=== PATIENT | female | born 1975 | race African-American/Black ===

== ENCOUNTER 2016-08-25 08:36 | Emergency (ER) | payer OTHER ==
[2016-08-25 08:43] VITALS: BMI 22.6
--- NOTE | 2016-08-25 09:14 | PDOC ---
History of Present Illness - General History Source: Patient Exam Limitations: No Limitations - History of Present Illness Initial Comments: 08/25/16 09:23 The patient is a 40 year old female, with a significant past medical history of anemia and HTN, who presents to the emergency department with chest pain/ tightness and SOB this morning. She describes her chest pain as a pressure that has been constant since this morning. She ranks her chest pain a 8/10 in pain intensity. She reports her chest pain and SOB is often made worse when lying down. The patient reports her chest pain often radiates up to her left upper arm. She denies recent fevers, chills, headache or dizziness. She denies recent nausea, vomit, diarrhea or constipation. She denies recent dysuria, frequency, urgency or hematuria. She denies recent cough. She denies any recent travel. She denies previous stress test. Allergies: NKA Past surgical history: . Social history: Current smoker (less than a pack a day). Social EtOH use and marijuana use use. Family History: HTN <Saeid Pratt - Last Filed: 08/25/16 13:49> <Nick Mcfadden - Last Filed: 08/25/16 16:25> - General Chief Complaint: Chest Pain Stated Complaint: CONGESTION, CHEST TIGHTNESS Time Seen by Provider: 08/25/16 08:52 Past History <Saeid Pratt - Last Filed: 08/25/16 13:49> - Past Medical History Anemia: Yes HTN: Yes - Psycho/Social/Smoking Cessation Hx Anxiety: No Suicidal Ideation: No Smoking History: Never smoked Number of Cigarettes Smoked Daily: 2 'Breaking Loose' booklet given: 04/05/16 Hx Alcohol Use: Yes (SOCIAL) Drug/Substance Use Hx: No Substance Use Type: None <Nick Mcfadden - Last Filed: 08/25/16 16:25> - Past Medical History Allergies/Adverse Reactions: Allergies Allergy/AdvReac Type Severity Reaction Status Date / Time No Known Allergies Allergy Verified 08/25/16 08:43 Home Medications: Ambulatory Orders Amlodipine Besylate [Norvasc -] 10 mg PO DAILY #30 tablet 04/07/16 Naproxen [Naprosyn -] 500 mg PO BID PRN #20 tablet 08/25/16 Review of Systems - Review of Systems Constitutional: No: Chills, Fever HEENTM: No: Throat Pain, Throat Swelling Respiratory: Yes: Shortness of Breath. No: Cough Cardiac (ROS): Yes: Chest Pain. No: Edema, Lightheadedness, Palpitations ABD/GI: No: Diarrhea, Vomiting Musculoskeletal: No: Muscle Pain All Other Systems: Reviewed and Negative <Nick Mcfadden - Last Filed: 08/25/16 16:25> *Physical Exam - Vital Signs Last Vital Signs Temp Pulse Resp BP Pulse Ox 99.2 F 116 H 20 120/80 97 08/25/16 08:40 08/25/16 08:40 08/25/16 08:40 08/25/16 08:40 08/25/16 08:40 - Physical Exam Comments: 08/25/16 09:23 GENERAL: The patient is awake, alert, and fully oriented, in no acute distress. HEAD: Normal with no signs of trauma. EYES: Pupils equal, round and reactive to light, extraocular movements intact, sclera anicteric, conjunctiva clear with no pallor. ENT: Ears normal, nares patent, oropharynx clear without exudates. Moist mucous membranes. NECK: Normal range of motion, supple without lymphadenopathy, JVD, or masses. LUNGS: Breath sounds equal, clear to auscultation bilaterally. No wheeze/ crackles. HEART: Regular rate and rhythm, normal S1 and S2 without murmur or rub. ABDOMEN: Soft/nontender/nondistended. BS wnl. No guarding or rebound. No palpable masses. No hepatosplenomegaly. EXTREMITIES: Normal range of motion, no edema. No clubbing or cyanosis. No cords , erythema, or tenderness. NEUROLOGICAL: Cranial nerves II through XII grossly intact. Normal speech, normal gait. PSYCH: Normal mood, normal affect. SKIN: Warm, Dry, normal turgor, no rashes or lesions noted. <Saeid Pratt - Last Filed: 08/25/16 13:49> - Vital Signs Last Vital Signs Temp Pulse Resp BP Pulse Ox 99.2 F 116 H 20 120/80 97 08/25/16 08:40 08/25/16 08:40 08/25/16 08:40 08/25/16 08:40 08/25/16 08:40 <Nick Mcfadden - Last Filed: 08/25/16 16:25> Heart Score/ECG Review - History History: Slightly suspicious - Electrocardiogram EKG: Non specific repolarization disturbance - Age Age: </= 46 - Risk Factors Risk Factors Heart Score: Yes Hx Hypertension, Yes Smoking History Based on the list above the patient has:: 1-2 risk factors - Troponin Troponin: </= normal limit - Score Heart Score - Total: 2 #1 ECG reviewed & interpreted by me at: 08:48 General ECG Interpretation: Sinus Rhythm, Normal Rate (102), Normal Intervals ( qtc 458), No acute ischemic changes (T wave flattening lateral leads, sub-mm DAGO isolated V3 without reciprocal changes) <Nick Mcfadden - Last Filed: 08/25/16 16:25> ED Treatment Course - LABORATORY CBC & Chemistry Diagram: 08/25/16 10:25 08/25/16 10:25 - RADIOLOGY Radiograph Interpretation: 08/25/16 13:47 CHEST XRAY impressions reported by : No evidence of active pulmonary disease. <Saeid Pratt - Last Filed: 08/25/16 13:49> - LABORATORY CBC & Chemistry Diagram: 08/25/16 10:25 08/25/16 10:25 <Nick Mcfadden - Last Filed: 08/25/16 16:25> Medical Decision Making - Medical Decision Making 08/25/16 09:18 A portion of this note was documented by scribe services under my direction. I have reviewed the details of the note, within reason, and agree with the documentation with the following case summary and management plan written by me. 40-year-old female with history of hypertension, iron deficiency anemia, smoking history presents with constant substernal and left-sided chest discomfort since last night. Persistent at rest, worse with lying down or bending over, associated with some shortness of breath. Not associated with any cough or fevers or chills, no history of exertional limitations, no PE risk factors. Never had chest pain or stress test. Vital signs within normal limits, heart rate 100 alert, seated in stretcher Heart regular slight tachycardia, lungs are clear, no edema 40-year-old female with some risk factors for ACS presents with overall atypical chest pain that has been constant since last night. Positional nature implies possible GI/GERD versus pericarditis etiology, clinically less consistent with ACS or PE. Labs, EKG Chest x-ray Trial of Zantac and Tylenol Will reassess 08/25/16 14:19 Labs are within normal limits, including troponin. Chest x-ray normal. Patient remains with some positional discomfort, question pericarditis versus musculoskeletal. Trial of Toradol, reassess. Of note, remains with resting HR 100. No risk factors for PE, but will check d- dimer, repeat troponin, and give IV Fluids. 08/25/16 16:22 Toradol improved symptoms, d-dimer and troponin negative. Agrees with discharge plan, trial of NSAIDs, understands return criteria. <Nick Mcfadden - Last Filed: 08/25/16 16:25> *DC/Admit/Observation/Transfer - Attestations Scribe Attestion: 08/25/16 09:23 Documentation prepared by Saeid Pratt, acting as medical device sales consultant for Nick Mcfadden MD. <Saeid Pratt - Last Filed: 08/25/16 13:49> <Nick Mcfadden - Last Filed: 08/25/16 16:25> Diagnosis at time of Disposition: Atypical chest pain - Discharge Dispostion Disposition: HOME Condition at time of disposition: Improved - Prescriptions Prescriptions: Naproxen [Naprosyn -] 500 mg PO BID PRN #20 tablet PRN Reason: Pain - Referrals Referrals: Clark Kurtz MD [Primary Care Provider] - - Patient Instructions Printed Discharge Instructions: DI for Atypical Chest Pain Additional Instructions: Activity as tolerated. Stay hydrated. Blood tests, an EKG, and a chest x-ray performed today showed no acute abnormalities. Your symptoms could be due to some inflammation in the chest, which may be in the lining of the heart or in the muscles or cartilage of the ribs. Take naproxen 500 mg twice daily for 5 days, then as needed for pain. Preferably take with food. Continue your medications as previously prescribed by your physician. You should follow up with Dr. Kurtz as soon as possible regarding today's emergency department visit. If symptoms persist, you should see a reference assistant and/or GI specialist. Return to the emergency department for any new or concerning symptoms, particularly worsening pain, difficulty breathing, palpitations, passing out, vomiting.
[2016-08-25] MEDS ORDERED: ACETAMINOPHEN 500 MG TABLET (FP) PO ONE (09:15)
[2016-08-25] MEDS ORDERED: RANITIDINE HCL 150 MG TABLET (FP) PO ONE (09:15)
[2016-08-25] MEDS ORDERED: RANITIDINE HCL 150 MG TABLET (FP) ONE (09:26)
[2016-08-25] MEDS ORDERED: ACETAMINOPHEN 325 MG TABLET (FP) ONE (09:26)
[2016-08-25 10:53] LABS: BASOPHIL 0.2 % (0-2.0); EOSINOPHIL 0.9 % (0-4.5); MCHC 32.7 g/dl (32.0-36.0); MEAN CELL VOLUME 91.5 fl (80-96); MEAN PLT VOLUME 8.2 fl (7.5-11.1); NEUTROPHILS 87.4 % (42.8-82.8); PLATELET COUNT 272 K/MM3 (134-434); WHITE BLOOD COUNT 12.3 K/mm3 (4.0-10.0)
[2016-08-25 11:17] LABS: INR 1.03 (0.82-1.09); PROTHROMBIN TIME (PATIENT) 11.3 SEC (9.98-11.88)
--- NOTE | 2016-08-25 11:33 | EKG ---
Test Reason : Blood Pressure : / mmHG Vent. Rate : 102 BPM Atrial Rate : 102 BPM P-R Int : 192 ms QRS Dur : 082 ms QT Int : 352 ms P-R-T Axes : 055 -19 015 degrees QTc Int : 458 ms SINUS TACHYCARDIA NONSPECIFIC T WAVE ABNORMALITY ABNORMAL ECG WHEN COMPARED WITH ECG OF 20-JUN-1997 08:33, T WAVE INVERSION NO LONGER EVIDENT IN ANTERIOR LEADS Confirmed by ANISA WILD, ROBERT ([id number]) on 08/25/2016 11:32:58 AM Referred By: Confirmed By:ROBERT LANGE MD
[2016-08-25 11:38] LABS: ANION GAP 14 (8-16); BILIRUBIN,TOTAL 0.3 mg/dL (0.2-1.0); CALCIUM 8.7 mg/dL (8.5-10.1); CO2 24 mmol/L (21-32); CREATININE 0.5 mg/dL (0.55-1.02); GLUCOSE,RANDOM 96 mg/dL (74-106); MAGNESIUM 1.8 mg/dL (1.8-2.4); SGOT/AST 33 U/L (15-37); SGPT/ALT 33 U/L (12-78)
[2016-08-25 11:40] LABS: ALK PHOS 56 U/L (45-117); TROPONIN I < 0.02 ng/ml (0.00-0.05)
[2016-08-25 13:31] VITALS: TEMP 98
[2016-08-25] MEDS ORDERED: KETOROLAC TROMETHAMINE 30 MG/1 ML VIAL IVPUSH ONE (14:10)
[2016-08-25] MEDS ORDERED: KETOROLAC TROMETHAMINE 30 MG/1 ML VIAL ONE (14:21)
[2016-08-25] MEDS ORDERED: SODIUM CHLORIDE 1,000 ML IV ONE (14:22)
[2016-08-25 16:01] LABS: TROPONIN I < 0.02 ng/ml (0.00-0.05)
[2016-08-25 16:50] VITALS: BP 115/80; PULSE 118
== END 2016-08-25 16:50 | disposition home or self-care (01) ==
LOC: JER 08:36
DX: R07.89 Other chest pain (principal); I10 Essential (primary) hypertension; D64.9 Anemia, unspecified
CPT/HCPCS: 36415; 71020-TC; 80053; 82550; 83735; 84484; 84703; 85025; 85379; 85610; 85651; 93005; 93010; 99284-25

== ENCOUNTER → 2016-08-28 | Emergency (ER) | payer OTHER ==
[~2016-08-28] MED LIST: COLCHICINE 0.6 MG TABLET (FP) ONE; INDOMETHACIN 50 MG CAPSULE PO ONE; KETOROLAC TROMETHAMINE 30 MG/1 ML VIAL ONE; SODIUM CHLORIDE 1,000 ML IV STA
[2016-08-28 08:19] VITALS: TEMP 97.9; BMI 22.6
--- NOTE | 2016-08-28 08:23 | PDOC ---
History of Present Illness - General History Source: Patient, Old Records Exam Limitations: No Limitations <Stanford Forbes - Last Filed: 08/28/16 10:10> <Hieu Andrade - Last Filed: 08/28/16 12:00> - General Chief Complaint: Chest Pain Stated Complaint: CHEST PAIN Time Seen by Provider: 08/28/16 08:21 - History of Present Illness Initial Comments: 08/28/16 09:55 The patient is a 41 year old female presenting with her , with a significant past medical history of hypertension and anemia, who presents to the emergency department with chest pain onset today. The patient describes the pain as a pressure, rating it a 9/10 in severity. She denies any radiation. She notes that the pain is exacerbated when she lays back. She also reports back pain associated with her chief complaint. She describes her back pain as mild, without radiation or modifying factors. The patient was in the ED on 08/25/2016 for the same symptoms. She had blood work performed, Chest X-ray and an EKG which was within normal limits at the time. She was discharged same day after improvement of symptoms. The patient denies shortness of breath, headache and dizziness. Denies fever, chills, nausea, vomit, diarrhea and constipation. Denies dysuria, frequency, urgency and hematuria. Allergies: None Past surgical history: Social history: Alcohol use (3 times a week). Daily cigarette use (8 daily). Marijuana use (4 times week) PMD - Dr. Clark Kurtz (Stanford Forbes) Past History <Stanford Forbes - Last Filed: 08/28/16 10:10> - Past Medical History Anemia: Yes HTN: Yes - Psycho/Social/Smoking Cessation Hx Anxiety: No Suicidal Ideation: No Smoking History: Never smoked Number of Cigarettes Smoked Daily: 2 Information on smoking cessation initiated: No 'Breaking Loose' booklet given: 04/05/16 Hx Alcohol Use: No Drug/Substance Use Hx: No Substance Use Type: None <Hieu Andrade - Last Filed: 08/28/16 12:00> - Past Medical History Allergies/Adverse Reactions: Allergies Allergy/AdvReac Type Severity Reaction Status Date / Time No Known Allergies Allergy Verified 08/28/16 08:14 Home Medications: Ambulatory Orders Amlodipine Besylate [Norvasc -] 10 mg PO DAILY #30 tablet 04/07/16 Naproxen [Naprosyn -] 500 mg PO BID PRN #20 tablet 08/25/16 Review of Systems - Review of Systems Able to Perform ROS?: Yes <Stanford Forbes - Last Filed: 08/28/16 10:10> <Hieu Andrade - Last Filed: 08/28/16 12:00> - Review of Systems Comments:: 08/28/16 09:56 CONSTITUTIONAL: No fever, no chills, no fatigue EYES: No visual changes ENT: No ear pain, no sore throat CARDIOVASCULAR: +Chest pain. No palpitations RESPIRATORY: No cough, no SOB GI: No abdominal pain, no nausea, no vomiting, no constipation, no diarrhea GENITOURINARY: No dysuria, no frequency, no hematuria MUSKULOSKELETAL: No backpain, no joint pain, no myalgias SKIN: No rash NEURO: No headache (Stanford Forbes) *Physical Exam <Stanford Forbes - Last Filed: 08/28/16 10:10> <Hieu Andrade - Last Filed: 08/28/16 12:00> - Vital Signs Last Vital Signs Temp Pulse Resp BP Pulse Ox 97.9 F 98 H 20 100/73 100 08/28/16 08:14 08/28/16 11:29 08/28/16 11:29 08/28/16 11:29 08/28/16 11:29 - Physical Exam Comments: 08/28/16 09:56 CONSTITUTIONAL: Awake, alert, pale appearing, in no apparent distress HEAD: Normocephalic; atraumatic EYES: PERRL; EOM intact ENMT: External appears normal; normal oropharynx NECK: Supple; non-tender; no cervical lymphadenopathy CARD: Normal S1, S2 pericardial friction rub; no murmurs, rubs, or gallops RESP: Normal chest excursion with respiration; breath sounds clear and equal bilaterally; no wheezes, rhonchi, or rales ABD: Soft, non-distended; non-tender; no palpable organomegaly, no palpable hernias EXT: Normal ROM in all four extremities; non-tender to palpation; radial pulses are weakened, distal pulses intact SKIN: Warm, dry, no rash NEURO: No focal neurological deficiencies. (Stanford Forbes) ED Treatment Course - LABORATORY CBC & Chemistry Diagram: 08/28/16 08:43 08/28/16 08:43 <Stanford Forbes - Last Filed: 08/28/16 10:10> - LABORATORY CBC & Chemistry Diagram: 08/28/16 08:43 08/28/16 08:43 <Hieu Andrade - Last Filed: 08/28/16 12:00> - ADDITIONAL ORDERS Additional order review: Laboratory Results 08/28/16 08/28/16 08/28/16 08:43 08:43 08:43 INR 1.12 Sodium 138 Potassium 3.4 L Chloride 103 Carbon Dioxide 19 L D Anion Gap 16 BUN 10 D Creatinine 0.6 Creat Clearance w eGFR > 60 Random Glucose 119 H D Calcium 8.5 Total Bilirubin 0.6 D AST 18 D ALT 18 D Alkaline Phosphatase 55 Creatine Kinase 47 Troponin I < 0.02 C-Reactive Protein 22.9 H Total Protein 7.2 Albumin 3.5 Serum , Qual Negative 08/28/16 08:43 RBC 3.81 MCV 91.7 MCHC 33.8 RDW 15.7 H MPV 7.9 Neutrophils % 87.1 H Lymphocytes % 4.0 L Monocytes % 8.4 Eosinophils % 0.2 Basophils % 0.3 - RADIOLOGY Radiology Studies Ordered: Category Date Time Status ABDOMEN/PELVIS CTA W/WO CONTR [CT] Stat CT Scan 08/28/16 10:58 Completed CHEST CTA [CT] Stat CT Scan 08/28/16 10:27 Completed CHEST X-RAY PORTABLE* [RAD] Stat Radiology 08/28/16 08:25 Completed Radiograph Interpretation: 08/28/16 10:10 Chest X-Ray Reviewed by: Dr. Bobo Mckeon Impression: Weak inspiration. New right base changes. (Stanford Forbes) - Medications Given in the ED: ED Medications Discontinued Medications Generic Name Dose Route Start Last Admin Trade Name Freq PRN Reason Stop Dose Admin Fentanyl 25 mcg 08/28/16 10:19 08/28/16 10:22 Sublimaze Injection - IVPUSH 08/28/16 10:20 25 mcg ONCE ONE Administration Sodium Chloride 1,000 mls @ 1,000 mls/hr 08/28/16 09:05 08/28/16 09:34 Normal Saline - IV 08/28/16 10:04 1,000 mls/hr ASDIR STA Administration Sodium Chloride 1,000 mls @ 1,000 mls/hr 08/28/16 10:09 08/28/16 10:55 Normal Saline - IV 08/28/16 11:08 1,000 mls/hr ASDIR STA Administration Indomethacin 25 mg 08/28/16 09:05 08/28/16 09:34 Indocin - PO 08/28/16 09:06 25 mg ONCE ONE Administration Medical Decision Making <Stanford Forbes - Last Filed: 08/28/16 10:10> - Critical Care Time Total Critical Care Time (minutes): 75 Critical Care Statement: The care of this patient involved high complexity decision making to prevent further life threatening deterioration of the patient 's condition and/or to evalute & treat vital organ system(s) failure or risk of failure. <Hieu Andrade - Last Filed: 08/28/16 12:00> - Medical Decision Making 08/28/16 09:59 Dr. Abrams was called regarding the patient at 9:09am Dr. Abrams was consulted regarding the patient at 9:12am [phone] (Stanford Forbes) 08/28/16 09:46 Patient is a 41-year-old female with history of smoking who presents with signs and symptoms of acute pericarditis. In the ED, patient is awake and alert, pale appearing, tachycardic and hypotensive when sitting up with blood pressure of 67 /40, unable to maintain supine position due to pain. EKG reveals SC depressions and downsloping ST segment elevations consistent with pericarditis. Chest x-ray reveals mild cardiomegaly, atelectasis and a questionable small right pleural effusion. Bedside echo reveals a small pericardial effusion without evidence of right ventricular collapse. CRP and ESR significantly elevated. Patient has received 1500 mL of normal saline as well as indomethacin-25mg po with mild improvement of blood pressure to 85/50. 08/28/16 10:16 Patient reassessed. Patient remains hypotensive. Patient's currently receiving additional boluses of normal saline. Case discussed with Dr. Brennan Sabillon of cardiology. He recommends transfer [facility] for [facility]ogram and cardiothoracic evaluation. Patient will require a higher level of care. 08/28/16 10:19 Patient complaining of persistent pain. We'll administer fentanyl-25 g IV. We' ll continue fluid resuscitation. 08/28/16 10:52 Patient complaining of chest pain radiating to the back. Will obtain CTA of chest to rule out dissection. Awaiting transfer to [facility]. 08/28/16 11:59 CTA of chest reveals no evidence of aortic dissection. Moderate-sized pericardial effusion is present, as well as bilateral pleural effusions (right greater than left), with some atelectatic changes. (Hieu Andrade) *DC/Admit/Observation/Transfer <Stanford Forbes - Last Filed: 08/28/16 10:10> - Transfer to Acute Care Facility Receiving Facility: [facility] Accepting Physician:: Dr. Bobo Abdalla <Hieu Andrade - Last Filed: 08/28/16 12:00> Diagnosis at time of Disposition: Pericardial effusion Acute pericarditis Qualifiers: Pericarditis type: unspecified type Qualified Code(s): I30.9 - Acute pericarditis, unspecified - Discharge Dispostion Disposition: TRANSFER ACUTE CARE/OTHER HOSP Condition at time of disposition: Guarded - Referrals Referrals: Clark Kurtz MD [Primary Care Provider] - - Transfer to Acute Care Facility Transfer comment: 08/28/16 10:18 Consent obtained. (Hieu Andrade) - Attestations Scribe Attestion: 08/28/16 09:56 Documentation prepared by Stanford Forbes, acting as medical office supervisor for Hieu Andrade MD (Stanford Forbes) Physician Attestion: 08/28/16 10:04 The documentation was prepared by the scribe under my direct supervision. I have reviewed the documentation which correctly represents the findings, medical decision-making and critical action taken by me. (Hieu Andrade)
[2016-08-28 08:52] LABS: BASOPHIL 0.3 % (0-2.0); EOSINOPHIL 0.2 % (0-4.5); MCHC 33.8 g/dl (32.0-36.0); MEAN CELL VOLUME 91.7 fl (80-96); MEAN PLT VOLUME 7.9 fl (7.5-11.1); NEUTROPHILS 87.1 % (42.8-82.8); PLATELET COUNT 222 K/MM3 (134-434); RDW 15.7 % (11.6-15.6); WHITE BLOOD COUNT 10.6 K/mm3 (4.0-10.0)
[2016-08-28 09:04] LABS: INR 1.12 (0.82-1.09); PROTHROMBIN TIME (PATIENT) 12.4 SEC (9.98-11.88)
[2016-08-28 09:19] LABS: ALBUMIN 3.5 g/dl (3.4-5.0); ANION GAP 16 (8-16); CALCIUM 8.5 mg/dL (8.5-10.1); CO2 19 mmol/L (21-32); GLUCOSE,RANDOM 119 mg/dL (74-106)
[2016-08-28 09:35] LABS: ALK PHOS 55 U/L (45-117); BILIRUBIN,TOTAL 0.6 mg/dL (0.2-1.0); C-REACTIVE PROTEIN 22.9 MG/DL (0.00-0.3); CREATININE 0.6 mg/dL (0.55-1.02); SGOT/AST 18 U/L (15-37); SGPT/ALT 18 U/L (12-78); TOT PROT 7.2 g/dl (6.4-8.2)
--- NOTE | 2016-08-28 09:51 | PN ---
Progress Note (short form) - Note Progress Note: Consult Dictated Probable acute pericarditis Pericardial effusion with hypotension REC: Continue IVF, BP improving NSAIDS Because our cardiology department does not offer weekend echo, we will transfer to tertiary care center CCU for further management, complete echo and r/o tamponade. Patient accepted to [facility] CCU
[2016-08-28 10:04] LABS: TROPONIN I < 0.02 ng/ml (0.00-0.05)
[2016-08-28 10:05] LABS: ERYTHROCYTE SEDIMENTATION RATE 100 mm/hr (0-20)
[2016-08-28 10:22] VITALS: BP 100/73
[2016-08-28 11:30] VITALS: PULSE 98
--- NOTE | 2016-08-30 09:49 | CONS ---
DATE OF CONSULTATION: DATE OF DICTATION: 08/28/[address] Andrade for chest pain. The patient is a 41-year-old female with iron-deficiency anemia and chronic hypertension. She has been having substernal chest pain since Tuesday. She describes it as sharp and worse when she lies down, better when she sits up. She denies fevers, chills, or recent upper respiratory infections. Her EKG shows a pattern consistent with acute pericarditis with ST elevations less than 1 mm in 1, aVL, aVF, V2-V5 with IA depression evident in 1, lead 2, and lead 3. There is also some low voltage. She was initially hypotensive, in the 70s systolic when she sits up, improved when lying down, and improving now with IV fluid hydration. She has received indomethacin in the ER. She denies prior myocardial infarctions or history of coronary disease. PAST MEDICAL HISTORY: Is as above and includes iron-deficiency anemia, hypertension, and previous sections. ALLERGIES: She has no known drug allergies. HOME MEDICATIONS: Include amlodipine 10 mg daily. FAMILY HISTORY: Negative for early CAD or for aortic dissection. SOCIAL HISTORY: She smokes several cigarettes a day. Denies alcohol or tobacco use. PHYSICAL EXAMINATION: Vital signs: Temperature 97.9; pulse 110, regular; blood pressure 106/71; O2 saturation 100 on room air. Neck: Carotid pulses 2+. Heart: S1-2 regular. Difficult to auscultate in the ER, but no murmurs. Possible friction rub. Chest: Decreased breath sounds at the bases. No wheezing. Abdomen: Soft. Nontender. Extremities: Warm. No edema. LABORATORIES: White count 10.6, hematocrit 35, platelets 222, neutrophil shift at 87%. INR 1.1. Sodium 138, potassium 3.4, creatinine 0.6, LFTs are normal. CRP is elevated at 23. IMPRESSION: 1. Probable acute pericarditis. 2. Pericardial effusion, at least small effusion, possibly moderate on the emergency room bedside echo, with hypotension. PLAN: 1. Because our hospital does not provide weekend echocardiograms, the patient will need transfer to a tertiary care center for a full echocardiogram, today, to evaluate the extent of the pericardial effusion and rule out pericardial tamponade. 2. We will continue IV fluids, as her blood pressure seems to be improving nicely with normal saline. 3. Continue NSAIDs. 4. I have spoken to the CCU Attending at [facility] who has accepted the patient for transfer within the next 1 to 2 hours. Thank you for the consultation. RALPH RHOADES M.D. [id number]
--- NOTE | 2016-08-30 23:13 | EKG ---
Test Reason : Blood Pressure : / mmHG Vent. Rate : 110 BPM Atrial Rate : 110 BPM P-R Int : 130 ms QRS Dur : 076 ms QT Int : 350 ms P-R-T Axes : 050 -06 014 degrees QTc Int : 473 ms SINUS TACHYCARDIA POSSIBLE LEFT ATRIAL ENLARGEMENT TX DEPRESSION NONSPECIFIC ST AND T WAVE ABNORMALITY ABNORMAL ECG WHEN COMPARED WITH ECG OF 25-AUG-2016 08:48, NO SIGNIFICANT CHANGE IS FOUND Confirmed by FLETCHER WILD, EDILBERTO ([id number]) on 08/30/2016 11:12:49 PM Referred By: Confirmed By:EDILBERTO BYNUM MD
== END | disposition short-term general hospital (02) ==
LOC: JER 08:12
PROC: 3E0337Z Introduction of Electrolytic and Water Balance Substance into Peripheral Vein, Percutaneous Approach (ICD-10-PCS; principal; 2016-08-28)
PROC: 3E033NZ Introduction of Analgesics, Hypnotics, Sedatives into Peripheral Vein, Percutaneous Approach (ICD-10-PCS; 2016-08-28)
DX: I30.9 Acute pericarditis, unspecified (principal); J90 Pleural effusion, not elsewhere classified; F17.210 Nicotine dependence, cigarettes, uncomplicated; I10 Essential (primary) hypertension; D64.9 Anemia, unspecified
CPT/HCPCS: 36415; 71010-TC; 71275-TC; 74174-TC; 80053; 82550; 84484; 84703; 85025; 85610; 85651; 86140; 86618; 93005; 93010; 96361; 96374; 99283-25

== ENCOUNTER 2016-09-27 10:08 | Emergency (ER) | payer OTHER ==
[2016-09-27 10:20] VITALS: TEMP 98.5; BMI 22.6
--- NOTE | 2016-09-27 10:44 | PDOC ---
History of Present Illness - General Chief Complaint: Chest Pain Stated Complaint: CHEST PAIN, SOB Time Seen by Provider: 09/27/16 10:41 History Source: Patient Exam Limitations: No Limitations - History of Present Illness Initial Comments: 41 yo AA F with history of anemia, HTN, pericarditis with effusion and tamponade s/p pericardial window presented to the ED with chest pain since last night. She stated 2 different pains: 1st pain is substernal, electricity like, 5 /10, intermittent, non-radiating associated with shortness of breath when laying back; 2nd pain is under her L breast, sore like, non-radiating, constant. Denies fever, chills, diarrhea, abd pain, dysuria, dizziness, headache. Past History - Past Medical History Allergies/Adverse Reactions: Allergies Allergy/AdvReac Type Severity Reaction Status Date / Time No Known Allergies Allergy Verified 09/27/16 10:15 Home Medications: Ambulatory Orders Amlodipine Besylate [Norvasc -] 10 mg PO DAILY #30 tablet 04/07/16 Colchicine 0.6 mg PO BID #28 tablet 09/27/16 Ferrous Sulfate 325 mg PO DAILY 09/27/16 Anemia: Yes Cardiac Disorders: Yes (CARDIAC TAMPONADE,PERICARDIAL WINDOW-08/30/2016) HTN: Yes - Surgical History Cardiac Surgery: Yes (PERICARDIAL WINDOW-08/30/2016) - Psycho/Social/Smoking Cessation Hx Anxiety: No Suicidal Ideation: No Smoking History: Former smoker Have you smoked in the past 12 months: Yes Number of Cigarettes Smoked Daily: 2 Information on smoking cessation initiated: No 'Breaking Loose' booklet given: 04/05/16 Hx Alcohol Use: No Drug/Substance Use Hx: No Substance Use Type: None *Physical Exam - Vital Signs Last Vital Signs Temp Pulse Resp BP Pulse Ox 98.5 F 81 20 116/70 98 09/27/16 10:15 09/27/16 13:07 09/27/16 13:07 09/27/16 13:07 09/27/16 13:07 ED Treatment Course - LABORATORY CBC & Chemistry Diagram: 09/27/16 11:10 09/27/16 11:10 - ADDITIONAL ORDERS Additional order review: Laboratory Results 09/27/16 09/27/16 09/27/16 11:22 11:13 11:10 INR 1.15 H PTT (Actin FS) 33.8 Sodium 138 Potassium 4.3 D Chloride 102 Carbon Dioxide 26 D Anion Gap 10 BUN 11 Creatinine 0.6 Creat Clearance w eGFR > 60 Random Glucose 80 D Calcium 9.2 Magnesium Total Bilirubin 0.1 L D AST 20 ALT 20 Alkaline Phosphatase 94 D Creatine Kinase 75 Troponin I < 0.02 B-Natriuretic Peptide 230 H Total Protein 7.5 Albumin 3.2 L Serum , Qual Negative 09/27/16 11:10 INR PTT (Actin FS) Sodium Potassium Chloride Carbon Dioxide Anion Gap BUN Creatinine Creat Clearance w eGFR Random Glucose Calcium Magnesium 2.0 Total Bilirubin AST ALT Alkaline Phosphatase Creatine Kinase Troponin I B-Natriuretic Peptide Total Protein Albumin Serum , Qual 09/27/16 11:10 RBC 3.76 MCV 87.1 MCHC 33.0 RDW 18.0 H D MPV 6.6 L D Neutrophils % 76.0 Lymphocytes % 18.0 D Monocytes % 2.0 L Eosinophils % 4.0 D - RADIOLOGY Radiology Studies Ordered: Category Date Time Status CXRPORT [CHEST X-RAY PORTABLE*] [RAD] Stat Radiology 09/27/16 11:53 Completed - Medications Given in the ED: ED Medications Discontinued Medications Generic Name Dose Route Start Last Admin Trade Name Freq PRN Reason Stop Dose Admin Ketorolac Tromethamine 30 mg 09/27/16 12:29 09/27/16 12:34 Toradol Injection - IVPUSH 09/27/16 12:30 30 mg ONCE ONE Administration *DC/Admit/Observation/Transfer Diagnosis at time of Disposition: Pericarditis Qualifiers: Pericarditis type: idiopathic Chronicity: unspecified Qualified Code(s): I30.0 - Acute nonspecific idiopathic pericarditis - Discharge Dispostion Disposition: HOME Condition at time of disposition: Stable Admit: No - Prescriptions Prescriptions: Colchicine 0.6 mg PO BID #28 tablet - Referrals Referrals: Clark Kurtz MD [Primary Care Provider] - Juan Kidd MD [Staff Physician] - - Patient Instructions Printed Discharge Instructions: DI for Pericarditis Additional Instructions: Please follow up with Dr. Kidd as scheduled and take colchicine 0.6mg twice a day for 14 days. Please return to the emergency department or your primary care doctor for worsening or continued chest pain or shortness of breath.
[2016-09-27 11:24] LABS: MCH 28.8 pg (25.7-33.7); MEAN CELL VOLUME 87.1 fl (80-96); MEAN PLT VOLUME 6.6 fl (7.5-11.1); PLATELET COUNT 468 K/MM3 (134-434); WHITE BLOOD COUNT 8.5 K/mm3 (4.0-10.0)
[2016-09-27 11:50] LABS: INR 1.15 (0.82-1.09); PROTHROMBIN TIME (PATIENT) 12.7 SEC (9.98-11.88)
[2016-09-27 11:52] LABS: ALBUMIN 3.2 g/dl (3.4-5.0); ANION GAP 10 (8-16); CALCIUM 9.2 mg/dL (8.5-10.1); CO2 26 mmol/L (21-32); COCKROFT - GAULT 121.3715; CREATININE 0.6 mg/dL (0.55-1.02); GLUCOSE,RANDOM 80 mg/dL (74-106); SGPT/ALT 20 U/L (12-78)
[2016-09-27 11:53] LABS: ACTIVATED PTT 33.8 SECONDS (26.9-34.4)
--- NOTE | 2016-09-27 11:55 | PDOC ---
Attending Attestation - Resident Resident Name: Ravi Gonzales - ED Attending Attestation I have performed the following: I have examined & evaluated the patient, The case was reviewed & discussed with the resident, I agree w/resident's findings & plan, Exceptions are as noted - HPI HPI: 09/27/16 11:48 41-year-old female with past medical history of asthma presents with chest pain. Patient was seen on August 28 for substernal chest pain where she was evaluated and ultimately had pericarditis with pericardial effusion. She was transferred to clinic still at that time and was evaluated. She had a pericardial effusion with cardiac Without and ultimately had 6 vessel drainage of pericardial fluid. Patient reports that she has procedure twice. She was discharged on September 01 with the drain pulled out. Since then, she was pain free. Yesterday, she started to develop substernal chest pressure worse with lying down improved with sitting up. No radiation. Pt's symptoms are pleuritic. Denies fevers, chills. Reports the severity of the pain not as bad as prior on August 28. Came into ED because of chest pain. - Physicial Exam PE: 09/27/16 12:30 GENERAL: Awake, alert, and fully oriented, in no acute distress. HEAD: No signs of trauma EYES: PERRLA, EOMI, sclera anicteric, conjunctiva clear ENT: Auricles normal inspection, hearing grossly normal, nares patent, oropharynx clear without exudates. NECK: Normal ROM, supple, no lymphadenopathy, JVD, or masses LUNGS: Breath sounds equal, clear to auscultation bilaterally. No wheezes, and no crackles HEART: Regular rate and rhythm, normal S1 and S2, no murmurs, rubs or gallops. Surgical scar inferior to left breast well-granulated and healing well. ABDOMEN: Soft, nontender, normoactive bowel sounds. No guarding, no rebound. No masses EXTREMITIES: Normal range of motion, no edema. No clubbing or cyanosis. No cords, erythema, or tenderness NEUROLOGICAL: Cranial nerves II through XII grossly intact. Normal speech, normal gait SKIN: Warm, Dry, normal turgor, no rashes or lesions noted. - Medical Decision Making 09/27/16 12:32 ECG demonstrates some low voltages. Though no electrical alternans. Though ECG does not demonstrate pericarditis, pt's history is concerning for pericarditis. Toradol ordered. Case was discussed with Dr. Kidd. Will obtain an official echo and touch base with him once results return. Labs including troponin (to r/ o myocarditis) ordered. Reassess. 09/27/16 14:49 CBC, BMP 09/27/16 11:10 09/27/16 11:10 CMP Sodium 138 mmol/L (136-145) 09/27/16 11:10 Potassium 4.3 mmol/L (3.5-5.1) D 09/27/16 11:10 Chloride 102 mmol/L (98-107) 09/27/16 11:10 Carbon Dioxide 26 mmol/L (21-32) D 09/27/16 11:10 Anion Gap 10 (8-16) 09/27/16 11:10 BUN 11 mg/dL (7-18) 09/27/16 11:10 Creatinine 0.6 mg/dL (0.55-1.02) 09/27/16 11:10 Creat Clearance w eGFR > 60 (>60) 09/27/16 11:10 Random Glucose 80 mg/dL (74-106) D 09/27/16 11:10 Calcium 9.2 mg/dL (8.5-10.1) 09/27/16 11:10 Magnesium 2.0 mg/dL (1.8-2.4) 09/27/16 11:10 Total Bilirubin 0.1 mg/dL (0.2-1.0) L D 09/27/16 11:10 AST 20 U/L (15-37) 09/27/16 11:10 ALT 20 U/L (12-78) 09/27/16 11:10 Alkaline Phosphatase 94 U/L (45-117) D 09/27/16 11:10 Creatine Kinase 75 IU/L (26-192) 09/27/16 11:10 Troponin I < 0.02 ng/ml (0.00-0.05) 09/27/16 11:10 B-Natriuretic Peptide 230 pg/ml (5-125) H 09/27/16 11:10 Total Protein 7.5 g/dl (6.4-8.2) 09/27/16 11:10 Albumin 3.2 g/dl (3.4-5.0) L 09/27/16 11:10 Serum , Qual Negative 09/27/16 11:[address] Kidd. Minimal pericardial effusion. Recommends colchine. Patient has follow up this week with cardiology Dr. Kidd. Return precautions given. Discharge diagnosis: pericarditis Heart Score/ECG Review #1 ECG reviewed & interpreted by me at: 10:15 09/27/16 12:33 NSR 102, Q wave V1-V2, TWI I, V4-V6, no std/elena, QTC 430 msec
[2016-09-27 11:57] LABS: ALK PHOS 94 U/L (45-117); BILIRUBIN,TOTAL 0.1 mg/dL (0.2-1.0); TOT PROT 7.5 g/dl (6.4-8.2); TROPONIN I < 0.02 ng/ml (0.00-0.05)
[2016-09-27 11:58] LABS: SGOT/AST 20 U/L (15-37)
[2016-09-27] MEDS ORDERED: KETOROLAC TROMETHAMINE 30 MG/1 ML VIAL IVPUSH ONE (12:29)
[2016-09-27 13:10] VITALS: BP 116/70; PULSE 81
--- NOTE | 2016-09-27 14:16 | CON.CARD ---
Consult Consult Specialty:: Cardiology Referred by:: ER Reason for Consultation:: Chest pain, sob, h/o pericardial effusion and tamponade - History of Present Illness Chief Complaint: chest pain, sob History of Present Illness: 41 year old woman with a history of anemia, admission last month with chest pain and sob found to have a large pericardial effusion with evidence of tamponade, transferred to [facility] where the effusion was drained (not certain if pericardiocentesis or pericardial window) presented to the ER with 1d h/o chest pain and sob. pt states the symptoms started last night. she has been feeling well since discharge from the hospital. chest pain occurs when lying down, relieved by sitting up. sob also while lying down. comfortable currently in the er. no pnd, orthopnea, or LE edema. no lightheadedness, dizziness, syncope, or near syncope. - History Source History Provided By: Patient, Medical Record Limitations to Obtaining History: No Limitations - Past Medical History Cardio/Vascular: Yes: HTN, Other (pericardial effusion with tamponade s/p drain 08/2016) Heme/Onc: Yes: Anemia - Alcohol/Substance Use Hx Alcohol Use: No - Smoking History Smoking history: Former smoker Have you smoked in the past 12 months: Yes Aproximately how many cigarettes per day: 2 - Social History ADL: Independent History of Recent Travel: No Home Medications - Allergies Allergies/Adverse Reactions: Allergies Allergy/AdvReac Type Severity Reaction Status Date / Time No Known Allergies Allergy Verified 09/27/16 10:15 - Home Medications Home Medications: Ambulatory Orders Amlodipine Besylate [Norvasc -] 10 mg PO DAILY #30 tablet 04/07/16 Colchicine 0.6 mg PO BID #28 tablet 09/27/16 Ferrous Sulfate 325 mg PO DAILY 09/27/16 Family Disease History - Family Disease History Family Disease History: Other: Grandparent (anemia), Mother (anemia) Review of Systems - Review of Systems Constitutional: denies: No Symptoms, Chills, Diaphoresis, Fever, Lethargy, Loss of Appetite, Malaise, Night Sweats, Unintentional Wgt. Loss, Weakness, Other Eyes: denies: No Symptoms, Blind Spots, Blurred Vision, Double Vision, Eye Pain , Floaters, Photophobia, Recent Change in Vision, Other HENT: denies: No Symptoms, Difficult Swallowing, Ear Discharge, Ear Pain, Epistaxis, Gingival Bleeding, Hearing Loss, Mouth Swelling, Nasal Congestion, Ocular Prosthesis, Throat Pain, Toothache, Ringing in Ears, Other Neck: denies: No Symptoms, Decreased ROM, Lumps, Pain on Movement, Stiffness, Swollen Glands, Tenderness, Other Cardiovascular: reports: Chest Pain, Shortness of Breath. denies: No Symptoms, Edema, Palpitations, Other Respiratory: reports: SOB. denies: No Symptoms, Cough, Exercise Intolerance, Hemoptysis, Orthopnea, PND, Snoring, SOB on Exertion, Wheezing, Other Gastrointestinal: denies: No Symptoms, Abdominal Pain, Bloating, Constipation, Diarrhea, Dysphagia, Indigestion, Melena, Nausea, Rectal Bleeding, Vomiting, Vomiting Blood, Other Genitourinary: denies: No Symptoms, Burning, Discharge, Dysuria, Flank Pain, Frequency, Hematuria, Incontinence, Lesions, Menses, Pain, Testicular Mass, Testicular Pain, Testicular Swelling, Urgency, Vaginal Bleeding, Other Breasts: denies: No Symptoms Reported, See HPI, Breast Implants, Discharge from Nipple, Lumps, Pain, Skin Changes, Other Musculoskeletal: denies: No Symptoms, Back Pain, Crepitus, Decreased ROM, Extremity Pain, Joint Pain, Joint Swelling, Muscle Pain, Muscle Cramps, Muscle Weakness, Other Integumentary: denies: No Symptoms, Blister, Bruising, Change in Color, Eczema, Erythema, Incision, Lesions, Lump, Pallor, Pruritis, Rash, Wound, Other Neurological: denies: No Symptoms, Change in LOC, Change in Speech, Confusion, Dizziness, Headache, Incoordination, Numbness, Parasthesia, Pre-Existing Deficit , Seizure, Syncope, Tremors, Unsteady Gait, Weakness, Other Endocrine: denies: No Symptoms, Excessive Sweating, Flushing, Increased Hunger, Increased Thirst, Intolerance to Cold, Intolerance to Heat, Unexplained Weight Gain, Unexplained Weight Loss, Other Hematology/Lymphatic: denies: No Symptoms, Easily Bruised, Excessive Bleeding, Swollen Glands, Other Psychiatric: denies: No Symptoms, Altered Sleep Pattern, Anxiety, Depression, Hallucinations, Panic, Paranoia, Suicidal, Other Vital Signs: Vital Signs Temperature 98.5 F 09/27/16 10:15 Pulse Rate 81 09/27/16 13:07 Respiratory Rate 20 09/27/16 13:07 Blood Pressure 116/70 09/27/16 13:07 O2 Sat by Pulse Oximetry (%) 98 09/27/16 13:07 Constitutional: Yes: Well Nourished, No Distress, Calm Eyes: Yes: WNL, Conjunctiva Clear, EOM Intact HENT: Yes: WNL, Atraumatic, Normocephalic Neck: Yes: WNL, Supple, Trachea Midline Respiratory: Yes: WNL, Regular, CTA Bilaterally. No: Rales, Rhonchi, Wheezes Gastrointestinal: Yes: WNL, Normal Bowel Sounds, Soft. No: Distention, Tenderness Renal/: Yes: WNL Cardiovascular: Yes: WNL, Regular Rate and Rhythm. No: Bradycardia, Tachycardia , Pulse Irregular, Gallop, Rub, Varicosities JVD: No Carotid Bruit: No PMI: Non-Displaced Heart Sounds: Yes: S1, S2. No: Split S2, S3, S4, Clicks, Gallop, Rub, Bruit Murmur: No: Systolic Murmur, Diastolic Murmur Musculoskeletal: Yes: WNL Extremities: Yes: WNL Edema: No Peripheral Pulses WNL: Yes Peripheral Pulses: 2+ Left Doralis Pedis, 2+ Right Dorsalis Pedis Integumentary: Yes: WNL Neurological: Yes: WNL, Alert, Oriented, Cran Nerves II-XII Intact ...Motor Strength: WNL Psychiatric: Yes: WNL, Alert, Oriented - Other Data Labs, Other Data: CBC, BMP 09/27/16 11:10 09/27/16 11:10 INR, PTT INR 1.15 (0.82-1.09) H 09/27/16 11:13 Troponin, BNP 09/27/16 11:10 Troponin I < 0.02 B-Natriuretic Peptide 230 H Troponin, BNP 09/27/16 11:10 Troponin I < 0.02 B-Natriuretic Peptide 230 H ekg-sinus tach 102bpm, nonspecific St abnl t inversions V3-V6, I, avL, low voltage Echo: Report Reviewed, Image Reviewed Imaging - Results Chest X-ray: Report Reviewed, Image Reviewed EKG: Report Reviewed, Image Reviewed Other: Report Reviewed, Image Reviewed Assessment/Plan Chest pain/SOB Recent pericardial effusion with tamponade s/p drain (need to clarify if window or pericardiocentesis) presented today with Recurrent chest pain and sob last night Likely pericarditis Echo done and reviewed, small pericardial effusion, no tamponade Can start colchicine Pt is acceptable for discharge, she already has an appointment for f/up this tuesday in office
[2016-09-27 14:19] LABS: ANISOCYTOSIS 2+; HYPOCHROMIA 1+; MICROCYTOSIS FEW; TARGET CELLS 1+
[2016-09-27] MEDS ORDERED: COLCHICINE 0.6 MG TABLET (FP) PO ONE (14:48)
--- NOTE | 2016-09-27 16:29 | EKG ---
Test Reason : Blood Pressure : / mmHG Vent. Rate : 102 BPM Atrial Rate : 102 BPM P-R Int : 178 ms QRS Dur : 076 ms QT Int : 330 ms P-R-T Axes : 047 -10 -42 degrees QTc Int : 430 ms SINUS TACHYCARDIA POSSIBLE LEFT ATRIAL ENLARGEMENT POSSIBLE SEPTAL INFARCT , AGE UNDETERMINED NONSPECIFIC T WAVE ABNORMALITY are present in inferior leads and V4-6 ABNORMAL ECG WHEN COMPARED WITH ECG OF 28-AUG-2016 08:21, SEPTAL INFARCT IS NOW PRESENT Non-specific T wave abnormalities are now present in inferior leads and V4-6 Confirmed by NIKHIL CURRAN MD ([id number]) on 09/27/2016 4:29:37 PM Referred By: Confirmed By:NIKHIL CURRAN MD
== END 2016-09-27 15:14 | disposition home or self-care (01) ==
LOC: JER 10:08
PROC: 3E0233Z Introduction of Anti-inflammatory into Muscle, Percutaneous Approach (ICD-10-PCS; principal; 2016-09-27)
DX: I30.0 Acute nonspecific idiopathic pericarditis (principal); I10 Essential (primary) hypertension; D64.9 Anemia, unspecified
CPT/HCPCS: 36415; 71010-TC; 80053; 82550; 83735; 83880; 84484; 84703; 85025; 85610; 85730; 93005; 93010; 93306-TC; 96374; 99283-25

== ENCOUNTER 2018-03-18 10:23 | Emergency (ER) | payer BC, OTHER ==
[2018-03-18 10:37] VITALS: BP 132/84; PULSE 85; TEMP 98.9; BMI 27.4
--- NOTE | 2018-03-18 11:27 | PDOC ---
History of Present Illness - General Chief Complaint: Pain Stated Complaint: RT LEG PAIN Time Seen by Provider: 03/18/18 11:09 History Source: Patient Exam Limitations: No Limitations - History of Present Illness Initial Comments: 03/18/18 11:23 42 yr female with c/o right knee pain for 1-2 weeks only when she is at work. Pt denies trauma, no swelling no fever no recent travel. no blood thinners. 03/18/18 11:25 Past History - Past Medical History Allergies/Adverse Reactions: Allergies Allergy/AdvReac Type Severity Reaction Status Date / Time No Known Allergies Allergy Verified 09/27/16 10:15 Home Medications: Ambulatory Orders Amlodipine Besylate [Norvasc -] 10 mg PO DAILY #30 tablet 04/07/16 Ferrous Sulfate 325 mg PO DAILY 09/27/16 Anemia: Yes Cardiac Disorders: Yes (CARDIAC TAMPONADE,PERICARDIAL WINDOW-08/30/2016) COPD: No HTN: Yes - Surgical History Cardiac Surgery: Yes (PERICARDIAL WINDOW-08/30/2016) - Suicide/Smoking/Psychosocial Hx Smoking History: Current every day smoker Have you smoked in the past 12 months: Yes Number of Cigarettes Smoked Daily: 2 Information on smoking cessation initiated: No 'Breaking Loose' booklet given: 04/05/16 Hx Alcohol Use: No Drug/Substance Use Hx: No Substance Use Type: None Review of Systems - Review of Systems Able to Perform ROS?: Yes Is the patient limited Latvian proficient: No Constitutional: No: Symptoms Reported HEENTM: No: Symptoms Reported Respiratory: No: Symptoms reported Cardiac (ROS): No: Symptoms Reported ABD/GI: No: Symptoms Reported : No: Symptoms Reported Musculoskeletal: Yes: Symptoms Reported Integumentary: No: Symptoms Reported *Physical Exam - Vital Signs Last Vital Signs Temp Pulse Resp BP Pulse Ox 98.9 F 85 18 132/84 98 03/18/18 10:31 03/18/18 10:31 03/18/18 10:31 03/18/18 10:31 03/18/18 10:31 - Physical Exam General Appearance: Yes: Nourished, Appropriately Dressed HEENT: positive: EOMI, JESSICA Extremity: positive: Normal Capillary Refill, Normal Inspection, Normal Range of Motion, Tender (anterior right knee ) Integumentary: positive: Normal Color, Dry, Warm Neurologic: positive: Fully Oriented, Alert, Normal Mood/Affect, Normal Response , Motor Strength 10/01 Medical Decision Making - Medical Decision Making 03/18/18 12:10 cc: right knee pain only at work no pain at home, pt denies injury will get xray *DC/Admit/Observation/Transfer Diagnosis at time of Disposition: Knee pain, acute Qualifiers: Laterality: right Qualified Code(s): M25.561 - Pain in right knee - Discharge Dispostion Disposition: HOME Condition at time of disposition: Good - Referrals Referrals: Clark Kurtz MD [Primary Care Provider] - Georgi Massey MD [Staff Physician] - - Patient Instructions Additional Instructions: follow with the orthopedist use the tejas wrap at all times except to bathe apply warm compresses to the area of pain every 4hrs for 15 minutes take ibuprofen for pain every 6-8hrs as needed - Post Discharge Activity
== END 2018-03-18 12:24 | disposition home or self-care (01) ==
LOC: JERFT 10:23 → JER 10:23 → JERFT 12:24
DX: M25.561 Pain in right knee (principal); I10 Essential (primary) hypertension; F17.210 Nicotine dependence, cigarettes, uncomplicated; Z86.79 Personal history of other diseases of the circulatory system
CPT/HCPCS: 73562-TC-RT-FY; 84703; 99281-25

== ENCOUNTER 2018-11-07 17:03 | Emergency (ER) | payer BC | END 2018-11-07 17:36 | disposition home or self-care (01) | LOC: JERFT 17:03 ==

== ENCOUNTER 2018-11-11 09:58 | Emergency (ER) | payer BC | END 2018-11-11 11:26 | disposition home or self-care (01) | LOC: JERFT 09:58 ==

== ENCOUNTER 2022-02-25 10:21 | Observation (INO) | payer BC, OTHER ==
[2022-02-25 10:30] VITALS: BMI 29.9
[2022-02-25] MEDS ORDERED: LABETALOL HCL 5 MG/1 ML (100MG/20 ML VIAL) IVPUSH ONE (11:27)
[2022-02-25] MEDS ORDERED: LABETALOL HCL 5 MG/1 ML (100MG/20 ML VIAL) ONE (11:32)
[2022-02-25 12:13] LABS: BASO % 1.2 % (0-2.0); EOS % 2.6 % (0-4.5); HEMATOCRIT 34.6 % (32.4-45.2); HEMOGLOBIN 10.6 GM/dL (10.7-15.3); LYMPH % 25.4 % (8-40); MCH 23.4 pg (25.7-33.7); MCHC 30.6 g/dl (32.0-36.0); MEAN CELL VOLUME 76.4 fl (80-96); MEAN PLT VOLUME 7.6 fl (7.5-11.1); MONO % 6.4 % (3.8-10.2); NEUT % 64.4 % (42.8-82.8); PLATELET COUNT 399 10^3/uL (134-434); RBC 4.53 M/mm3 (3.60-5.2); RDW 19.6 % (11.6-15.6); WHITE BLOOD COUNT 6.5 K/mm3 (4.0-10.0)
[2022-02-25 12:21] LABS: INR 1.08 (0.83-1.09); PROTHROMBIN TIME (PATIENT) 12.4 SEC (9.7-13.0)
[2022-02-25 12:24] LABS: ACTIVATED PTT 32.3 SECONDS (25.2-36.5)
[2022-02-25 12:49] LABS: ALBUMIN 3.8 g/dl (3.4-5.0); BLOOD UREA NITROGEN 10.8 mg/dL (7-18); CALCIUM 9.4 mg/dL (8.5-10.1)
[2022-02-25 12:50] LABS: MAGNESIUM 2.2 mg/dL (1.8-2.4)
[2022-02-25 12:53] LABS: CREATININE 0.7 mg/dL (0.55-1.3)
[2022-02-25 12:54] LABS: BILIRUBIN,TOTAL 0.6 mg/dL (0.2-1); TOT PROT 7.9 g/dl (6.4-8.2)
[2022-02-25 12:57] LABS: N-TERMINAL BNP 87.1 pg/ml (5-125)
[2022-02-25] MEDS ORDERED: ASPIRIN 81 MG CHEWABLE TABLETS PO ONE (14:09)
[2022-02-25] MEDS ORDERED: ASPIRIN 81 MG CHEWABLE TABLETS ONE (14:14)
[2022-02-25] MEDS ORDERED: ACETAMINOPHEN 325 MG TABLET (FP) PO PRN (17:58)
[2022-02-26] MEDS: amLODIPine BESYLATE 10 MG TABLET (FP) PO SCH (10:06)
[2022-02-26] MEDS: NICOTINE 14 MG/24 HOURS TOPICAL PATCH TD SCH (10:48)
[2022-02-26] MEDS: LISINOPRIL 5 MG TABLET PO SCH (10:48)
[2022-02-27] MEDS: LISINOPRIL 5 MG TABLET PO SCH (09:12)
[2022-02-27] MEDS: amLODIPine BESYLATE 10 MG TABLET (FP) PO SCH (09:12)
[2022-02-27] MEDS: NICOTINE 14 MG/24 HOURS TOPICAL PATCH TD SCH (09:13)
[2022-02-27 11:51] VITALS: RESP 18
[2022-02-27 18:49] VITALS: BP 154/94; PULSE 87; TEMP 97.5
== END 2022-02-27 18:53 | disposition home or self-care (01) ==
LOC: JER 10:21 → JERBED 12:02 → J4W 16:52
PROVIDERS: ADMIT Internal Medicine; ATTEND Internal Medicine
PROC: 3E033GC Introduction of Other Therapeutic Substance into Peripheral Vein, Percutaneous Approach (ICD-10-PCS; principal; 2022-02-25)
DX: I10 Essential (primary) hypertension (principal); D64.9 Anemia, unspecified; Z91.14 Patient's other noncompliance with medication regimen; M62.81 Muscle weakness (generalized); E66.8 Other obesity; Z68.30 Body mass index [BMI] 30.0-30.9, adult; I31.3 Pericardial effusion (noninflammatory); F17.210 Nicotine dependence, cigarettes, uncomplicated
CPT/HCPCS: 36415; 70450-TC; 71045-TC-FY; 80053; 80061; 82550; 83735; 83880; 84443; 84484; 84703; 85025; 85610; 85730; 93005; 93010; 93306-TC; 93308; 99285-25; C9803-CS; G0378; U0003; U0005

== ENCOUNTER 2022-10-05 10:55 | Emergency (ER) | payer OTHER ==
[2022-10-05 11:03] VITALS: BP 146/88; PULSE 99; RESP 18; TEMP 98.6; BMI 28.3
[2022-10-05] MEDS ORDERED: WATER IM ONE (11:37)
[2022-10-05] MEDS ORDERED: CEFTRIAXONE IM ONE (11:37)
[2022-10-05] MEDS ORDERED: DEXTROSE 5% IM ONE (11:37)
[2022-10-05] MEDS ORDERED: DOXYCYCLINE HYCLATE 100 MG CAPSULE PO ONE ×2 (11:39→12:11)
[2022-10-05] MEDS ORDERED: FLUCONAZOLE 150 MG TABLET PO ONE ×2 (11:40→12:11)
[2022-10-05 11:50] LABS: PH,URINE 6.5 (5.0-8.0); URINE APPEARANCE CLEAR; URINE BILIRUBIN NEGATIVE (NEGATIVE); URINE COLOR YELLOW; URINE GLUCOSE (UA) NEGATIVE (NEGATIVE); URINE KETONE NEGATIVE (NEGATIVE); URINE LEUK ESTERASE NEGATIVE (NEGATIVE); URINE NITRITE NEGATIVE (NEGATIVE); URINE PROTEIN NEGATIVE (NEGATIVE); URINE UROBILINOGEN 0.2 mg/dL (0.2-1.0)
[2022-10-05 11:52] LABS: HCG,QUALITATIVE URINE Negative
[2022-10-05] MEDS ORDERED: CEFTRIAXONE 0.5 GM in DEXTROSE 5%-WATER - 50 ML IM ONE (11:53)
[2022-10-05] MEDS ORDERED: cefTRIAXone SODIUM 1 GM VIAL ONE (12:12)
[2022-10-05] MEDS ORDERED: LIDOCAINE HCL 2% (20ML MULTI-DOSE VIAL) ONE (12:13)
[2022-10-05 13:59] LABS: SYPHILIS W/ RPR CONF NON-REACTIVE (NONREACTIVE)
[2022-10-05 14:27] LABS: HIV INTERPRETATION NEGATIVE (NEGATIVE)
== END 2022-10-05 13:11 | disposition home or self-care (01) ==
LOC: JERFT 10:55
PROC: 3E023GC Introduction of Other Therapeutic Substance into Muscle, Percutaneous Approach (ICD-10-PCS; principal; 2022-10-05)
DX: Z20.2 Contact with and (suspected) exposure to infections with a predominantly sexual mode of transmission (principal)
CPT/HCPCS: 36415; 81003; 84703; 86780; 87086; 87389; 87491; 87591; 96372; 99284-25

== ENCOUNTER 2023-02-03 20:17 | Emergency (ER) | payer BC, OTHER ==
[2023-02-03 20:34] VITALS: BP 133/89; PULSE 71; RESP 18; TEMP 98.6; BMI 28.6
[2023-02-03] MEDS ORDERED: DIPHTH,PERTUSS(ACELL),TET 0.5 ML DISP.SYRIN IM ONE ×2 (22:19→22:21)
[2023-02-03] MEDS ORDERED: AMOX TR/POT CLAV 875MG/125MG TABLETS (FP) PO ONE (22:19)
[2023-02-03] MEDS ORDERED: AMOX TR/POT CLAV 875MG/125MG TABLETS (FP) ONE (22:21)
== END 2023-02-03 22:39 | disposition home or self-care (01) ==
LOC: JERFT 20:17
PROC: 0HQLXZZ Repair Left Lower Leg Skin, External Approach (ICD-10-PCS; principal; 2023-02-03)
PROC: 3E0234Z Introduction of Serum, Toxoid and Vaccine into Muscle, Percutaneous Approach (ICD-10-PCS; 2023-02-03)
DX: S81.812A Laceration without foreign body, left lower leg, initial encounter (principal); M79.662 Pain in left lower leg; W55.03XA Scratched by cat, initial encounter
CPT/HCPCS: 12002-25; 90471; 90715; 99283-25

== ENCOUNTER 2023-02-11 07:56 | Emergency (ER) | payer OTHER ==
[2023-02-11 08:25] VITALS: BP 118/81; PULSE 70; RESP 18; TEMP 98.7; BMI 28.6
[2023-02-11] MEDS ORDERED: AMOX TR/POT CLAV 875MG/125MG TABLETS (FP) PO ONE (08:50)
[2023-02-11] MEDS ORDERED: IBUPROFEN 400 MG TABLET (FP) PO ONE ×2 (08:51→08:54)
[2023-02-11] MEDS ORDERED: AMOX TR/POT CLAV 875MG/125MG TABLETS (FP) ONE (08:54)
== END 2023-02-11 09:24 | disposition home or self-care (01) ==
LOC: JER 07:56 → JERFT 07:56
DX: S81.812D Laceration without foreign body, left lower leg, subsequent encounter (principal); T81.40XA Infection following a procedure, unspecified, initial encounter; W55.03XD Scratched by cat, subsequent encounter
CPT/HCPCS: 99283-25